=== PATIENT | female | born 1955 | race Caucasian/White ===

== ENCOUNTER → 2016-03-27 | Outpatient (CLI) | payer BC ==
--- NOTE | 2016-03-27 14:00 | RAD ---
EXAM DESCRIPTION: Right shoulder series. CLINICAL HISTORY: Right shoulder pain. COMPARISON: None. TECHNIQUE: Two views of the shoulder were acquired. FINDINGS: Glenohumeral joint space appears preserved. No fracture, dislocation, or suspicious radiopaque foreign body is seen. Soft tissues are unremarkable. IMPRESSION: No significant abnormality. Electronically signed by: Brian Miles MD 03/27/2016 13:58
== END ==
LOC: RAD 07:55
PROVIDERS: ATTEND Orthopaedic Surgery
DX: M25.511 Pain in right shoulder (principal)

== ENCOUNTER → 2016-07-06 | Outpatient (CLI) | payer BC ==
--- NOTE | 2016-07-06 12:45 | MRI ---
Study: MRI of the Right Shoulder. Indication: PAIN Technique: Multiplanar, multi sequence MRI of the right shoulder was obtained without intravenous contrast. Comparison: None. Findings: Moderate AC joint osteoarthritis. Type II acromion with mild lateral downsloping. Small volume subacromial/subdeltoid bursal fluid. Supraspinatus and infraspinatus tendinosis with high-grade articular tearing anterior two third supraspinatus tendon insertion with the tear measuring 12 mm AP by 8 mm transverse and involving at least 75% of expected tendon thickness. Additional interstitial fissuring throughout the critical zone infraspinatus tendon. No tendon retraction. Subscapularis tendinosis. Teres minor tendon intact. Rotator cuff musculature normal without atrophy, fatty infiltration, or intramuscular edema. Long head biceps tendon intact. Circumferential labral truncation noted. Irregular grade 4 chondral loss and subchondral cystic change noted throughout the central aspect of the glenoid with less pronounced areas of grade 2 chondral thinning throughout the joint. Tiny inferior humeral head osteophyte formation. No acute fracture. Impression: High-grade articular tearing anterior supraspinatus tendon with scattered interstitial fissuring throughout the critical zone infraspinatus tendon. Subscapularis tendinosis. Circumferential labral truncation noted. Irregular grade 4 chondral loss central glenoid with subchondral cystic change. Moderate AC joint osteoarthritis. Electronically signed by: Moshe Barros MD 07/06/2016 12:44 PM CDT
== END ==
LOC: MRI 07:41
PROVIDERS: ATTEND Orthopaedic Surgery
DX: M75.111 Incomplete rotator cuff tear or rupture of right shoulder, not specified as traumatic (principal)

== ENCOUNTER → 2016-09-14 | Outpatient (CLI) | payer BC ==
--- NOTE | 2016-09-14 12:08 | US ---
EXAM DESCRIPTION: Renal CLINICAL HISTORY: 60 years Female, COMPLEX RIGHT RENAL CYST COMPARISON: CT examination October 29, 2014 FINDINGS: The right kidney measures 5.2 x 4.8 x 9.3 cm. No hydronephrosis is seen. A slightly irregular septated thick-walled 2.1 x 1.9 x 1.7 cm cyst is present involving the mid right kidney and corresponds to the previous cystic abnormality evident on prior CT. Interval enlargement is suspected and further evaluation with repeat CT to assess this however much interval change has occurred is recommended. Alternatively evaluation with MR examination without and with contrast enhancement may more fully delineate the process. New abnormalities elsewhere within the kidney are not apparent. The left kidney is 10.6 x 5.9 x 5.2 cm. Simple appearing 9 mm cyst is present involving the upper pole of the left kidney. No further evaluation of this kidney is recommended. IMPRESSION: 1. Complex slightly thick-walled septated 2.1 cm cyst mid right kidney, enlarged from prior CT. Either reevaluation with CT for direct comparison or more complete evaluation with MR examination without and with contrast enhancement is recommended. 2. Small benign simple cyst upper pole of the left kidney with no worrisome abnormalities noted. Electronically signed by: Ric Rogers MD 09/14/2016 12:07 PM CDT
== END | disposition home or self-care (01) ==
LOC: US 08:38
PROVIDERS: ATTEND Urology
DX: R59.9 Enlarged lymph nodes, unspecified (principal)

== ENCOUNTER → 2016-09-15 | Outpatient (CLI) | payer BC | END | disposition home or self-care (01) | LOC: GMAB 14:22 | PROVIDERS: ATTEND Family Medicine | DX: R59.9 Enlarged lymph nodes, unspecified (principal) ==

== ENCOUNTER → 2017-05-03 | Outpatient (CLI) | payer BC | LOC: GMAB 10:29 | PROVIDERS: ATTEND Family Medicine | DX: Z00.00 Encounter for general adult medical examination without abnormal findings (principal); R30.0 Dysuria ==

== ENCOUNTER → 2017-06-21 | Outpatient (CLI) | payer BC ==
--- NOTE | 2017-06-21 10:12 | CT ---
EXAM DESCRIPTION: CT ABDOMEN AND PELVIS WITHOUT AND WITH CONTRAST CLINICAL HISTORY: CYST OF KIDNEY ACQUIRED COMPARISON: Renal sonogram September 14, 2016 TECHNIQUE: CT of the abdomen and pelvis are performed prior to and during IV bolus administration of 100 mL of Isovue 300. Oral contrast media is administered as well. FINDINGS: The lung bases are clear of infiltrate. Heart size is normal. Liver is normal in size and parenchymal appearance on precontrast images. Spleen, pancreas, and adrenal glands are unremarkable. Precontrast right renal lesion measures 1.8 cm with density of 17.5 Hounsfield units suggesting a benign cyst. No renal stones or hydronephrosis. There is no lymphadenopathy, inflammation, or free fluid observed. After IV contrast, normal enhancement of renal cortex is seen bilaterally. Few tiny cysts are seen bilaterally which are too small to measure. However the larger cyst in the right kidney previously noted is complex in appearance on sonography shows a postcontrast density of 34 Hounsfield units suggesting positive enhancement. However the appearance would suggest that there may be volume averaging with the adjacent parenchyma. This could be followed with sonography with repeat CT if the lesion shows evidence of growth. Previous sonogram showed small cyst in the left kidney. On the CT, this is in the lateral aspect the left kidney approximately 5 mm in size. Delayed postcontrast images show normal contrast accumulation in the urinary collecting systems with no filling defects. On the delayed images, the main right renal cyst of interest measures 27 Hounsfield units in density. Another cyst in the lower pole the right kidney has a density of 24 Hounsfield units and measures 1 cm in diameter. Coronal and sagittal reformatted images confirm the findings. Precontrast images through the pelvis are negative for ureteral or renal stones. Uterus is retroflexed. No ovarian enlargement. No inflammation around the appendix or cecum or sigmoid colon. Moderate amount of fecal material in the colon. Postcontrast imaging through the pelvis shows extensive enhancement of vessels in the parametrial regions left more than right. Pelvic venous congestion is thought more likely than pelvic arteriovenous malformation. Delayed images through the pelvis show positive contrast in the distal ureters and in the bladder. Bladder wall thickness is mildly prominent. Correlate with urinalysis. IMPRESSION: CT findings most consistent with bilateral renal cysts. Largest lesions could be followed with sonography. Pelvic venous congestion. This exam was performed according to our departmental dose-optimization program, which includes automated exposure control, adjustment of the mA and/or kV according to patient size and/or use of iterative reconstruction technique. Total DLP equals 1416.21 mGycm. Electronically signed by: Matthieu Marrero MD 06/21/2017 10:01 AM CDT
== END ==
LOC: LAB.O 07:42
PROVIDERS: ATTEND Urology
DX: N28.1 Cyst of kidney, acquired (principal)

== ENCOUNTER → 2018-06-15 | Outpatient (CLI) | payer BC | LOC: GMAE 11:09 | PROVIDERS: ATTEND Family Medicine | DX: Z00.00 Encounter for general adult medical examination without abnormal findings (principal) ==

== ENCOUNTER → 2018-06-21 | Outpatient (CLI) | payer BC ==
--- NOTE | 2018-06-21 17:41 | US ---
EXAM DESCRIPTION: Renal: Ultrasound. CLINICAL HISTORY: 62 years Female LEFT RENAL CYST COMPARISON: CT scan of abdomen and pelvis 06/21/2017. Ultrasound of the bilateral kidneys 09/14/2016. TECHNIQUE: Transcutaneous scanning: Two-dimensional and Doppler modes. FINDINGS: Right kidney measures 9.4 x 5.6 x 4.7. cm; mid-renal cortical thickness normal. . Normal cortical echogenicity. 1.6 x 1.3 cm cyst upper pole. Alonzo appear slightly thickened but not vascular. Stable size since the prior CT scan. 5.4 mm echogenic stone versus fatty deposit abutting the cyst. 8.3 x 8.7 mm cyst lower pole.. No hydronephrosis No echogenic stones. Smooth contour of the kidney with no perinephric fluid. Normal vascularity. Proximal ureter not visualized. Left kidney measures 10.5 x 5.1 x 5.1 cm; mid-renal cortical thickness 11 mm.. Normal echogenicity. Small 4.4 mm stone versus fatty deposits in the cortex. No hydronephrosis. No echogenic stones. Smooth contour of the kidney with no perinephric fluid. Normal vascularity.. Proximal ureter not visualized. Urinary bladder not visualized. Abdominal aorta: not measured. IMPRESSION: 1. Thick walled cyst in the right kidney stable in size compared to prior CT scan and smaller than on the prior ultrasound. Fatty deposit more likely than stone abutting the wall. No stones seen on the prior CT scan. Consider follow-up renal ultrasound in one year interval. 2. Minimal cortical thinning left kidney with probable fatty deposit in the cortex. Overall size of the kidney unremarkable.. Electronically signed by: Linwood Olivas MD 06/21/2018 5:37 PM CDT
== END ==
LOC: US 09:04
PROVIDERS: ATTEND Urology
DX: N28.1 Cyst of kidney, acquired (principal)

== ENCOUNTER → 2018-12-27 | Outpatient (CLI) | payer BC ==
--- NOTE | 2018-12-28 16:42 | MAM ---
EXAM DESCRIPTION: 3D Screening BILATERAL : Digital Mammography. CLINICAL HISTORY: 63 years Female ANNUAL SCREENING . No complaints. No personal or family history of breast cancer. Menarche age 16. Childbirth. Postmenopausal 15/years. Currently on HRT. Lifetime risk of developing breast cancer (Tyrer-Cuzick model)(%): 5.8. COMPARISON: Baseline study at this facility.. No prior reports available. TECHNIQUE: Bilateral CC and MLO projection full-field images, digital tomosynthesis mammographic technique. Bilateral digital 2-D full-field MLO images. CAD not available for tomosynthesis or 2-D images. FINDINGS: The breast parenchymal density pattern is: Scattered areas of fibroglandular density. No skin thickening or nipple retraction. Bilateral vascular calcifications. Skin mole on the right breast. Architectural distortion 1:00 position right breast 3 cm from the nipple. No new focal, stellate mass or density, focal asymmetry , and no suspicious microcalcifications left breast. IMPRESSION: BI-RADS CATEGORY: 0 - INCOMPLETE- Need additional imaging evaluation. FOLLOW-UP: Recall for additional imaging: Right breast LM full-field 2-D and tomosynthesis. Targeted right breast ultrasound region of interest.. Written communication concerning the IMPRESSION and Follow-up, will be mailed to the patient and referring health care provider. Electronically signed by: Linwood Olivas MD 12/28/2018 4:40 PM CDT
== END ==
LOC: MAMMO 09:00
PROVIDERS: ATTEND Family Medicine
DX: Z12.31 Encounter for screening mammogram for malignant neoplasm of breast (principal)

== ENCOUNTER → 2019-06-26 | Outpatient (CLI) | payer BC ==
--- NOTE | 2019-06-27 16:03 | US ---
EXAM DESCRIPTION: Renal: Ultrasound. CLINICAL HISTORY: 63 years Female CYST OF KIDNEY COMPARISON: Renal ultrasound June 2018. CT scan abdomen June 2017. TECHNIQUE: Transcutaneous scanning: Two-dimensional and Doppler modes. FINDINGS: Right kidney measures 9.5 x 4.8 x 4.3 cm; mid-renal cortical thickness normal with normal cortical.echogenicity. No hydronephrosis 4.1 and 6.0 mm echogenic stones. 13 mm simple cyst. Smooth contour of the kidney with no perinephric fluid. Normal vascularity. Proximal ureter not visualized.. Left kidney measures 11.0 x 5.4 x 5.2 cm; mid-renal cortical thicknessnumber. echogenicity. No hydronephrosis. 4.1 mm echogenic stone. 11 x 10 mm simple cyst. Smooth contour of the kidney with no perinephric fluid. Normal vascularity.. Proximal ureter not visualized.. Urinary bladder was visualized. 6.0 x 6.7 x 4.7 and estimated volume 98.9 mL. Ureteral jet in the bladder seen bilaterally by color Doppler. Post void volume not measured. Abdominal aorta: Normal caliber from the proximal segment to the distal bifurcation. IMPRESSION: 1. Simple cyst in the right kidney. 4.1 and 6.0 mm nonobstructing stones. Stone versus fatty deposit abutting the cyst on the prior study. Otherwise unremarkable. 2. Simple cyst in the left kidney. 4.1 mm cortical nonobstructing stone. Stable since the prior study. Otherwise unremarkable. 3. Urinary bladder visualized. Bilateral ureteral jets seen with color Doppler. Normal caliber of the abdominal aorta. Electronically signed by: Linwood Olivas MD 06/27/2019 4:01 PM CDT
== END ==
LOC: US 15:12
PROVIDERS: ATTEND Urology
DX: N28.1 Cyst of kidney, acquired (principal); N20.0 Calculus of kidney; N28.9 Disorder of kidney and ureter, unspecified

== ENCOUNTER → 2019-12-21 | Outpatient (CLI) | payer BC | LOC: GMAE 14:28 | PROVIDERS: ATTEND Family Medicine | DX: N30.00 Acute cystitis without hematuria (principal) ==

== ENCOUNTER → 2020-01-01 | Outpatient (CLI) | payer BC ==
--- NOTE | 2020-01-02 19:18 | MAM ---
EXAM DESCRIPTION: 3D Screening BILATERAL : Digital Mammography. CLINICAL HISTORY: 64 years Female ANNUAL SCREENING . No complaints. No family history of breast cancer. Menarche age 16. Childbirth age 26. Menopause age unknown. Currently on HRT.. Lifetime risk of developing breast cancer (Tyrer-Cuzick model)(%): 5.7. COMPARISON: Bilateral screening digital breast tomosynthesis. December 2018. TECHNIQUE: Bilateral CC and MLO projection full-field images, digital tomosynthesis mammographic technique. Bilateral digital 2-D full-field MLO images. CAD available for 2-D images. FINDINGS: The breast parenchymal density pattern is: Scattered areas of fibroglandular density. No skin thickening or nipple retraction. Vascular calcifications. Solitary microcalcifications. No new focal, stellate mass or density, focal asymmetry , and no suspicious microcalcifications bilaterally. Stable mammograms compared to prior study. IMPRESSION: Benign exam. BIRAD CATEGORY: 2 BENIGN FINDINGS. RECOMMENDATIONS: FOLLOW UP: Routine digital bilateral mammographic screening, one year interval from December 2019. Written communication explaining the IMPRESSION and follow-up, will be mailed to the patient and referring health care provider. According to the [employer], yearly mammograms are recommended starting at age 40 and continuing as long as a woman is in good health. Any breast change noted on a breast self-exam should be reported promptly to the patient's healthcare provider. Breast MRI is recommended for women with an approximately 20-25% or greater lifetime risk of breast cancer, including women with a strong family history of breast or ovarian cancer and women who have been treated for Hodgkin's disease. A negative mammographic report should not delay tissue diagnosis in patients with significant clinical history or physical findings. Extremely dense breast tissue limits the sensitivity of digital mammography. Electronically signed by: Linwood Olivas MD 01/02/2020 7:16 PM CDT
== END ==
LOC: MAMMO 16:00
PROVIDERS: ATTEND Family Medicine
DX: Z12.31 Encounter for screening mammogram for malignant neoplasm of breast (principal)

== ENCOUNTER → 2020-02-09 | Outpatient (CLI) | payer BC | LOC: GMAE 12:59 | PROVIDERS: ATTEND Family Medicine | DX: N39.0 Urinary tract infection, site not specified (principal) ==